=== PATIENT | female | born 1950 | race Caucasian/White ===

== ENCOUNTER 2016-10-30 20:16 | Observation (INO) | payer OTHER ==
[~2016-10-30] VITALS: Ht 157.5 cm; Wt 55.0 kg
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
--- OUTSIDE RECORDS SUMMARY | 2016-10-30 20:26 | XMS REPORT ---
Author Author [facility]. Organization [facility] Address [address] [place] [address] Phone [phone] Summary purpose CCDA Sent to PRE Chief Complaint and Reason for Visit No authorized Reason for Visit (Admitting Diagnosis) is available for this visit. Problem list No authorized problems tracked for continuity of care are available for this visit. Encounters No authorized problems tracked for encounter diagnoses are available for this visit. Medications Discharge Medications Status Medication Directions Current Synthroid 150 mcg tablet 150 microgram oral -Daily Allergies, adverse reactions, alerts Allergen Category Ingredient Status Reaction Severity Onset morphine Drug morphine Active Nausea Adolescence Levaquin Drug Levaquin Active Levaquin Drug levofloxacin Active Immunizations No immunizations recorded for this patient visit Relevant diagnostic tests and/or laboratory data No authorized results are available for this patient visit History of procedures No procedures recorded for this patient visit. Functional status Cognitive Status Finding Observation Time Level of Consciousne Alert :53 Oriented to Person Yes [id number] Yes :53 Oriented to Time Yes :53 Eyes - RANDAL Yes :53 Vital signs Type Value Date Pulse 74 :35 O2 Saturation 98% [id number]:35 Systolic Blood Press 130mm/HG [id number]:35 Diastolic Blood Pres 89mm/HG 96-15-408364:35 Temperature (Fahr) 97.9Degrees :35 Social history Type Value Smoking Status NEVER SMOKER Treatment Plan No treatment plan text is available for this visit. Hospital discharge instructions No discharge instruction text is available for this visit.
--- NOTE | 2016-10-30 20:32 | NUR ---
PROVIDER DR HOLLINGSWORTH AT BEDSIDE.
[2016-10-30] MEDS ORDERED: NORMAL SALINE 1,000 ML IV ONE (20:37)
--- NOTE | 2016-10-30 20:37 | NUR ---
CT PT LEAVES VIA CART WITH IMAGING STAFF ACCOMPANIED BY NURSE AT THIS TIME.
--- NOTE | 2016-10-30 20:44 | NUR ---
RETURN PT RETURNS TO ROOM.
--- OUTSIDE RECORDS SUMMARY | 2016-10-30 20:54 | XMS REPORT | Continuity of Care Document ---
Author Author [facility] [employer]. Organization [facility] Address Unknown Phone Unavailable Allergies Active Description Code Type Severity Reaction Onset Reported/Identified Relationship to Patient Clinical Status Yes levofloxacin 6299 Drug Allergy N/A N/A Confirmed or Verified Yes morphine 1545 Drug Allergy N/A N/A Confirmed or Verified Yes Levaquin 32628 Drug Allergy N/A N/A 09/20/2015 Yes morphine [...] Procedures Code Description [place] [address] COMPREHEN METABOLIC PANEL CARLENE NICOLE MD 04/12/2014 27672 EMERGENCY DEPT VISIT FLORENCE RAPHAEL MD 09/20/2015 [...] Status Pt. Type Provider Facility Loc./Unit Complaint [id number] 04/12/2014 11:28:00 04/12/2014 11:28:00 DIS Outpatient COREY MCLAIN, CARLENE [facility] ALA [id number] 09/20/2015 06:48:00 ACT Emergency DONAVON MCLAIN, FLOERNCE Helms [facility] ER
[2016-10-30 21:02] LABS: BASOPHILS % (AUTO) 0.4 % (0-2); EOSINOPHILS # (AUTO) 0.2 T/MM3 (0-0.5); EOSINOPHILS % (AUTO) 1.9 % (0-4); HCT - HEMATOCRIT 42.8 % (36-46); IMMATURE GRANULOCYTE # (AUTO) 0.01 T/MM3 (0.00-0.03); IMMATURE GRANULOCYTE % (AUTO) 0.1 % (0.0-0.5); INR 1.06 (0.76-1.04); LYMPHOCYTES # (AUTO) 2.8 T/MM3 (1-4.8); LYMPHOCYTES % (AUTO) 33.1 % (23-45); MEAN CORPUSCULAR HGB 29.9 UUG (26-34); MEAN CORPUSCULAR HGB CONC(MCHC 32.7 GM/DL (31-37); MEAN CORPUSCULAR VOLUME 91.5 UM3 (80-100); MEAN PLATELET VOLUME 9.7 UM3 (9.4-12.4); MONOCYTES # (AUTO) 0.5 T/MM3 (0-0.8); MONOCYTES % (AUTO) 5.9 % (0-9.0); NEUTROPHILS % (AUTO) 58.6 % (33-66); PROTHROMBIN TIME 11.5 SEC (9.31-12.49); RED BLOOD COUNT 4.68 M/MM3 (4.00-5.20); WBC - WHITE BLOOD COUNT 8.5 T/MM3 (4.5-11.0)
[2016-10-30 21:03] LABS: PTT 30.5 SEC (24-36)
[2016-10-30 21:05] LABS: ALBUMIN 4.6 G/DL (3.5-5.0); ALBUMIN/GLOBULIN RATIO 1.7 RATIO (1.1-2.2); ALKALINE PHOSPHATASE 90 U/L (38-126); ALT (SGPT) 26 U/L (9-52); ANION GAP 15 MEQ/L (5-15); AST (SGOT) 25 U/L (14-36); BUN/CREATININE RATIO 12 RATIO (6-26); CALCIUM 9.4 MG/DL (8.4-10.2); CHLORIDE 107 MEQ/L (98-107); CO2 - CARBON DIOXIDE 21 MEQ/L (22-30); CREATININE 0.9 MG/DL (0.7-1.2); GLOMERULAR FILTRATION RATE 62; GLUCOSE 125 MG/DL (65-110); POTASSIUM 3.6 MEQ/L (3.6-5); SODIUM 143 MEQ/L (134-144); TOTAL PROTEIN 7.3 G/DL (6.3-8.2)
[2016-10-30] MEDS ORDERED: ACET-2321 PO (21:05)
[2016-10-30] MEDS ORDERED: LEVO150T4 PO (21:05)
--- NOTE | 2016-10-30 21:06 | ERPDOC ---
Departure Disposition Decision Date: Oct 30, 2016 Disposition Decision Time: 21:00 Disposition: [address] [facility] Impression Impression Impression: Primary Impression: Confusion Severity: Moderate Condition: Improved Seen By: Physician only Problems/Meds/Labs Reviewed?: Yes Medications reviewed and manag: Yes Follow up care ordered?: Yes Mental Status: Alert, Occasionally Confused Scripts Levothyroxine Sodium (Synthroid) 150 Mcg Tablet 0.5 TAB PO ACB for hypothyroid for 30 Days, #30 TAB alternate 1/2 tablet with 1 tablet every other day. BEST IF TAKEN BEFORE BREAKFAST Prov: JESUS ALBERTO VILLARREAL MD 10/31/16 Doxycycline Monohydrate (Doxycycline Monohydrate) 100 Mg Capsule 1 CAP PO BID for 10 Days, #20 CAP Prov: JESUS ALBERTO VILLARREAL MD 10/31/16 HPI - CVA/Neuro General Chief Complaint: Stroke Symptoms Stated Complaint: CONFUSION/SHAKEY Time Seen by Provider: 20:37 Source: patient, family Exam Limitations: no limitations HPI - CVA/NEURO Initial Comments 66yo woman presents to the ER tonight for confusion/dizziness. Pts sx started around 1700 today; she had not eaten all day, so she ate 3 tacos. Sx have not improved. Pt has confusion, dizziness, weakness, trouble concentrating, and is repeating herself. 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 She has not been eating well, or taking good care of herself (bathroom breaks, etc). No h/o DM, HTN, or HL; remote h/o papillary thyroid CA. Today, BP is elevated. Occurred At: home Onset/Timing: Rapid Duration: 4-6 hrs Associated Symptoms: confusion, fatigue, weakness Hx of Similar Symptoms: No Allergies: Coded Allergies: meperidine (Verified Allergy, Unknown, 10/30/16) morphine (Verified Allergy, Unknown, 10/30/16) Past History Patient Medical History (1) Papillary adenocarcinoma of thyroid Review of Systems Constitutional Constitutional: dizziness, fatigue, weakness All other Systems All Other Systems: Reviewed and Negative Physical Exam General General Nourishment: well nourished, well developed, appears stated age, adult , thin General Body Habitus: well groomed Vitals and Pain First Documented Vital Signs Date Time Temp Pulse Resp B/P Pulse Ox O2 Delivery O2 Flow Rate FiO2 10/30/16 20:19 98.4 88 19 162/77 98 Room Air Weight: Kilograms: Height (feet): Height (inches): Triage Pain Scale: RN VS reviewed by Provider: Yes Eyes (brief) Eyes Brief: found: EOMI, PERRL, not found: scleral icterus ENMT (brief) ENMT Brief: FOUND: TM clear, TM good light reflex, ear canals clear, mucosa moist, normal tonsils Neck (brief) Neck: FOUND: trachea midline, NOT FOUND: JVD, adenopathy, thyromegaly Respiratory (brief) Respiratory: FOUND: clear all craft, equal bilaterally, symmetrical, NOT FOUND : rales, wheezes Cardiovascular (brief) Cardiac: FOUND: regular rate, regular rhythm, NOT FOUND: click, gallop, murmur , pedal edema, peripheral edema, rub Capillary Refill: <2 sec Pulses: all distal extremities, equal, strong Abdomen (brief) Abdominal Brief: FOUND: bowel normo active x4, soft, NOT FOUND: distended, hepatosplenomegaly, pulsatile mass, tender Lymphatic (brief) Lymphatic Brief: NOT FOUND: adenopathy, lymphedema Musculoskeletal (brief) Musculoskeletal Brief: NOT FOUND: deformity, loss of motion, spasm, tenderness Integumentary (brief) Integumentary Brief: FOUND: pink, warm Neurologic (brief) Neurological Brief: FOUND: CN w/o gross def to obs, DTR 2/4 all extremities, gait w/o gross def to obs, motor-no gross deficits, sensory-no gross deficits, NOT FOUND: Babinski Psychiatric (brief) Psychiatric Brief: FOUND: alert, normal affect, oriented Differential Diagnoses Considering: Thrombotic CVA, Hemorrhagic CVA, Delirium, DKA, Encephalitis, Hypertensive Emergency, Hypo/hypercalcemia, Hypo/hyperglycemia, Hypo/ hypernatremia, Hypothyroid, Medication Effect, Psychogenic, TIA Progress Results/Orders Orders Procedure Category Date Status Time Oxygen Administration EDM 10/30/16 Transmitted 20:37 Iv Lock (Ed Only) EDM 10/30/16 Transmitted 20:37 Bgm (Ed) EDM 10/30/16 Transmitted 20:37 Nothing By Mouth (Ed EDM 10/30/16 Transmitted Only) 20:37 Cbc W/Auto LAB 10/30/16 Complete Diff-Reflex Manual 20:37 Cmp - Comprehensive LAB 10/30/16 Complete Metabolic 20:37 Troponin I W LAB 10/30/16 Complete Hemolysis Index 20:37 INR LAB 10/30/16 Complete 20:37 PTT LAB 10/30/16 Complete 20:37 EKG EKG 10/30/16 Taken 20:37 Ct Head W/O Contrast CT 10/30/16 Taken 20:37 Nih Stroke Scale MARIE 10/30/16 Complete 20:37 Normal Saline (Normal PHA 10/30/16 Complete Saline Iv) 20:37 Elevate Hob MARIE 10/30/16 Complete 20:37 Aspirin *Ec* (Ecotrin) PHA 10/30/16 Complete 22:00 [address] In Facility: ED ADM 10/30/16 Transmitted Lab Results Laboratory Tests Test 10/30/16 20:35 10/30/16 20:49 Glucometer 110mg/dL White Blood Count 8.5T/MM3 Red Blood Count 4.68M/MM3 Hemoglobin 14.0GM/DL Hematocrit 42.8% Mean Corpuscular Volume 91.5UM3 Mean Corpuscular Hemoglobin 29.9UUG Mean Corpuscular Hemoglobin Concent 32.7GM/DL RDW Standard Deviation 45.1FL Platelet Count 289T/MM3 Mean Platelet Volume 9.7UM3 Immature Granulocyte % (Auto) 0.1% Neutrophils (%) (Auto) 58.6% Lymphocytes (%) (Auto) 33.1% Monocytes (%) (Auto) 5.9% Eosinophils (%) (Auto) 1.9% Basophils (%) (Auto) 0.4% Absolute Immature Granulocyte (auto 0.01T/MM3 Absolute Neutrophils (auto) 5.0T/MM3 Absolute Lymphocytes (auto) 2.8T/MM3 Absolute Monocytes (auto) 0.5T/MM3 Absolute Eosinophils (auto) 0.2T/MM3 Absolute Basophils (auto) 0.0T/MM3 Prothromb Time International Ratio 1.06 Activated Partial Thromboplast Time 30.5SEC Turbidity < 20 Sodium Level 143MEQ/L Potassium Level 3.6MEQ/L Chloride Level 107MEQ/L Carbon Dioxide Level 21MEQ/L Anion Gap 15MEQ/L Blood Urea Nitrogen 11.0MG/DL Creatinine 0.9MG/DL Glomerular Filtration Rate Calc 62 BUN/Creatinine Ratio 12RATIO Glucose Level 125MG/DL Calculated Osmolality 275MOSM/KG Calcium Level 9.4MG/DL Total Bilirubin 0.60MG/DL Icterus Index < 2 Aspartate Amino Transf (AST/SGOT) 25U/L Alanine Aminotransferase (ALT/SGPT) 26U/L Alkaline Phosphatase 90U/L Troponin I 0.021ng/ml C-Reactive Protein < 5.0MG/L Total Protein 7.3G/DL Albumin 4.6G/DL Globulin 2.7G/DL Albumin/Globulin Ratio 1.7RATIO Thyroid Stimulating Hormone (TSH) 6.65MIU/L Free Thyroxine Pending Chemistry Specimen Hemolysis < 15 Medications Current ED Medications Sodium Chloride (Normal Saline IV) 1,000 ml @ 0 mls/hr Q0M ONCE IV Last administered on 10/30/16t 20:59; Start 10/30/16 at 20:37; Stop 10/30/16 at 20:39 ; Status DC Progress Progress Discussed findings and recommendations with pt. Pt agrees to admission for observation. Will contact hospitalist for admission. EKG EKG : Rate: 60-100 Rhythm: sinus [place]: normal QRS: normal Intervals: normal ST/T: normal Interpreted by: signing physician Consult/PCP Consult/PCP #1: Time Called: 20:43 Time of first response: 20:45 Type of discussion: Phone Consult/PCP Discussion Details No indications for tPA. Recommends admission, MRI/MRA, EEG, TSH (to eval for undertreated hypothyroid) Consult/PCP #2: Time Called: 20:50 Time of first response: 20:55 Type of discussion: Admit Discussion/PCP Discussion Details Will admit for obs. CT CT : CT: Head no contrast Interpretation: Normal, Reviewed Written Report CORINNA HOLLINGSWORTH DO Oct 30, 2016 21:06
--- NOTE | 2016-10-30 21:10 | NUR ---
TELE-NEURO PHYSICIAN ON SCREEN COMMUNICATING WITH PT AT THIS TIME.
--- NOTE | 2016-10-30 21:38 | NUR ---
BR PT AMBULATES TO BR USING A STAEDY GAIT AT THIS TIME, VOIDS, SAMLE IS COLLECTED FOR LAB.
[2016-10-30] MEDS ORDERED: ONDANSETRON 4mg/2ml INJECTION IV PRN (22:00)
[2016-10-30] MEDS ORDERED: ASPIRIN *EC* 81mg TABLET PO ONE (22:00)
--- NOTE | 2016-10-30 22:06 | NUR ---
PROVIDER DR HOLLINGSWORTH IN ROOM AT THIS TIME.
--- NOTE | 2016-10-30 22:12 | NUR ---
ATTMEPT TO CALL REPORT AT THIS TIME, NOVEMBER WILL RETURN CALL SOON TO RECEIVE REPORT.
--- OUTSIDE RECORDS SUMMARY | 2016-10-30 22:12 | XMS REPORT | Continuity of Care Document ---
Author Author [facility] [employer]. Organization [facility] Address Unknown Phone Unavailable Allergies Active Description Code Type Severity Reaction Onset Reported/Identified Relationship to Patient Clinical Status Yes levofloxacin 6299 Drug Allergy N/A N/A Confirmed or Verified Yes morphine 1545 Drug Allergy N/A N/A Confirmed or Verified Yes Levaquin 10231 Drug Allergy N/A N/A 09/20/2015 Yes morphine [...] Procedures Code Description [place] [address] COMPREHEN METABOLIC PANEL CARLENE NICOLE MD 04/12/2014 55291 EMERGENCY DEPT VISIT FLORENCE RAPHAEL MD 09/20/2015 [...] Status Pt. Type Provider Facility Loc./Unit Complaint [id number] 04/12/2014 11:28:00 04/12/2014 11:28:00 DIS Outpatient COREY MCLAIN, CARLENE [facility] ALA [id number] 09/20/2015 06:48:00 ACT Emergency DONAVON MCLAIN, FLORENCE Helms [facility] ER
--- NOTE | 2016-10-30 22:18 | NUR ---
REPORT GIVEN TO CARLOS AT THIS TIME.
--- NOTE | 2016-10-30 22:30 | NUR ---
ADMIT TO MEDICAL RM 153 FROM ED VIA WHEELCHAIR, PT ALERT TO PERSON AND PLACE. APPEARS FATIGUED, BUT REPORTS FEELING ANXIOUS AND UNDER A LOT OF STRESS. PT'S SON ADONIS IS AT BEDSIDE.
--- NOTE | 2016-10-30 22:30 | NUR ---
DEPART PT IS TRANSFERRED VIA WHEELCHAIR TO MEDICAL UNIT ROOM 153 AT THIS TIME.
[2016-10-30 22:31] VITALS: Ht 157.5 cm; Wt 55.0 kg
[2016-10-30] MEDS ORDERED: LORA0.5T2 PO (22:41)
--- NOTE | 2016-10-30 23:22 | HPPDOC ---
WENCESLAO NYE MD 10/30/16 2315: HPI - Adult Date DATE: 10/30/16 TIME: 23:10 General Chief Complaint: not thinking right History of Present Illness Please note that the patient was seen via telemedicine with nursing assistance on 10/30/2016. 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 She has been able to eat, but due to worries about finances for her tiffany reeves son she has been working long hours and at times has forgotten to eat. She recognizes sinus fullness but no pain, some drainage. Note patient due to finances has even moved out of her home and is living in an room with her son?? Is taking half of her normal thyroid med to save money for a month. Some parasthesias noted, but no depression or weight change. Past Medical History Past Medical History Patient's Medical History: (1) Anaplastic thyroid carcinoma (2) Hypothyroidism (3) Migraines (4) Anxiety Surgical History Patient's Surgical History: for thyroid Current Medications Home Meds Active Scripts Levothyroxine Sodium (Synthroid) 150 Mcg Tablet, 0.5 TAB PO ACB for hypothyroid for 30 Days, #30 TAB alternate 1/2 tablet with 1 tablet every other day. BEST IF TAKEN BEFORE BREAKFAST Prov:JESUS ALBERTO VILLARREAL MD 10/31/16 Doxycycline Monohydrate (Doxycycline Monohydrate) 100 Mg Capsule, 1 CAP PO BID for 10 Days, #20 CAP Prov:JESUS ALBERTO VILLARREAL MD 10/31/16 Reported Medications Lorazepam (Lorazepam) 0.5 Mg Tablet, 0.5 MG PO PRN, TAB 10/30/16 Acetaminophen (Tylenol) 325 Mg Tablet, 1-2 TAB PO QID Y for PAIN, #60 TAB 2 Refills 10/30/16 Discontinued Reported Medications Levothyroxine Sodium (Synthroid) 150 Mcg Tablet, 0.5 TAB PO ACB, TAB BEST IF TAKEN BEFORE BREAKFAST 10/30/16 Allergies: Coded Allergies: meperidine (Verified Allergy, Unknown, 10/30/16) morphine (Verified Allergy, Unknown, 10/30/16) Family History Family History: mother of breast cancer, father from TTP Social History Smoking Status: Unknown if ever smoked Substance Use Type: does not use Alcohol Intake: none Housing: apartment Household Members: children Current Occupational Status: employed Advance Directives: No DPOA for Healthcare Only Review of Systems Constitutional: REPORTS: see HPI Physical Exam General General Nourishment: well nourished, thin, apparent age, adult General Body Habitus: well groomed Vital Signs Vital Signs Date Time Temp Pulse Resp B/P Pulse Ox O2 Delivery O2 Flow Rate FiO2 10/30/16 22:30 98.4 81 19 141/63 97 Room Air Height (Feet): 5 Height (Inches): 2.00 Telemetry Rhythm: Sinus Rhythm Eyes Brief: FOUND: EOMI Respiratory Brief: FOUND: clear all craft, NOT FOUND: wheezes Cardiovascular (brief) Cardiac Brief: FOUND: regular rate, regular rhythm Abdomen (brief) Abdominal Brief: FOUND: BS normo active x4 Integumentary (brief) Integumentary Brief: FOUND: pink Neurologic (brief) Neurological Brief: FOUND: cranial 2-12 intact Neurologic RN Documented GCS Eye Opening: (4)Spontaneous Verbal: (4)Confused Motor: (6)Obeys Commands Total: Psychiatric (brief) FOUND: alert, oriented Comments slow to answer but oriented and spells world backwards fine Laboratory Laboratory Tests Test 10/30/16 20:35 10/30/16 20:49 Glucometer 110mg/dL White Blood Count 8.5T/MM3 Red Blood Count 4.68M/MM3 Hemoglobin 14.0GM/DL Hematocrit 42.8% Mean Corpuscular Volume 91.5UM3 Mean Corpuscular Hemoglobin 29.9UUG Mean Corpuscular Hemoglobin Concent 32.7GM/DL RDW Standard Deviation 45.1FL Platelet Count 289T/MM3 Mean Platelet Volume 9.7UM3 Immature Granulocyte % (Auto) 0.1% Neutrophils (%) (Auto) 58.6% Lymphocytes (%) (Auto) 33.1% Monocytes (%) (Auto) 5.9% Eosinophils (%) (Auto) 1.9% Basophils (%) (Auto) 0.4% Absolute Immature Granulocyte (auto 0.01T/MM3 Absolute Neutrophils (auto) 5.0T/MM3 Absolute Lymphocytes (auto) 2.8T/MM3 Absolute Monocytes (auto) 0.5T/MM3 Absolute Eosinophils (auto) 0.2T/MM3 Absolute Basophils (auto) 0.0T/MM3 Prothromb Time International Ratio 1.06 Activated Partial Thromboplast Time 30.5SEC Turbidity < 20 Sodium Level 143MEQ/L Potassium Level 3.6MEQ/L Chloride Level 107MEQ/L Carbon Dioxide Level 21MEQ/L Anion Gap 15MEQ/L Blood Urea Nitrogen 11.0MG/DL Creatinine 0.9MG/DL Glomerular Filtration Rate Calc 62 BUN/Creatinine Ratio 12RATIO Glucose Level 125MG/DL Calculated Osmolality 275MOSM/KG Calcium Level 9.4MG/DL Total Bilirubin 0.60MG/DL Icterus Index < 2 Aspartate Amino Transf (AST/SGOT) 25U/L Alanine Aminotransferase (ALT/SGPT) 26U/L Alkaline Phosphatase 90U/L Troponin I 0.021ng/ml Total Protein 7.3G/DL Albumin 4.6G/DL Globulin 2.7G/DL Albumin/Globulin Ratio 1.7RATIO Thyroid Stimulating Hormone (TSH) 6.65MIU/L Chemistry Specimen Hemolysis < 15 Assessment & Plan Problems: (1) Altered mental status Status: Acute Assessment & Plan: obs tele and seen by teleneurology who recc MR brain which i ordered. I also ordered ASA in ED, but likely stress/sleep deprivation/etc causal. Imaging and AM labs with lipids, CRP, orthostatics warranted. No evidence of infection or metabolic problem, but not adequate thyroid replacement a contributor. Check UA and UDS as well, (2) Anaplastic thyroid carcinoma Status: Resolved (3) Anxiety Status: Acute (4) Migraines Status: Chronic (5) Hypothyroidism Status: Chronic Assessment & Plan: increase back to baseline supp 0.15mg PO daily. Code Status Full Code Hospital Course Summary Disclaimer The hospital course summary below is not to be considered part of the above Progress Note. JESUS ALBERTO VILLARREAL MD 10/31/162028: Past Medical History Current Medications Home Meds Active Scripts Levothyroxine Sodium (Synthroid) 150 Mcg Tablet, 0.5 TAB PO ACB for hypothyroid for 30 Days, #30 TAB alternate 1/2 tablet with 1 tablet every other day. BEST IF TAKEN BEFORE BREAKFAST Prov:JESUS ALBERTO VILLARREAL MD 10/31/16 Doxycycline Monohydrate (Doxycycline Monohydrate) 100 Mg Capsule, 1 CAP PO BID for 10 Days, #20 CAP Prov:JESUS ALBERTO VILLARREAL MD 10/31/16 Reported Medications Lorazepam (Lorazepam) 0.5 Mg Tablet, 0.5 MG PO PRN, TAB 10/30/16 Acetaminophen (Tylenol) 325 Mg Tablet, 1-2 TAB PO QID Y for PAIN, #60 TAB 2 Refills 10/30/16 Discontinued Reported Medications Levothyroxine Sodium (Synthroid) 150 Mcg Tablet, 0.5 TAB PO ACB, TAB BEST IF TAKEN BEFORE BREAKFAST 10/30/16 Allergies: Coded Allergies: meperidine (Verified Allergy, Unknown, 10/30/16) morphine (Verified Allergy, Unknown, 10/30/16) Assessment & Plan Assessment Dr. Nye's note reviewed, patient seen and examined this morning and later in the day. See my subsequent notes for additions and updates. WENCESLAO NYE MD Oct 30, 2016 23:15 JESUS ALBERTO VILLARREAL MD Oct 31, 2016 20:29
[2016-10-30] MEDS: LORAZEPAM 0.5 MG TABLET PO PRN (23:45)
[2016-10-31] VITALS (8 sets, daily range): BP systolic 126–161; BP diastolic 69–89; PULSE 61–86; RESP 14–18; TEMP 96.7–98.6; O2SAT 94–98
--- NOTE | 2016-10-31 00:03 | NEUROPD ---
Telestroke Consultation Note Patient Information Last Name:Jared First Name:Alissa Location: [facility] Arrival Date/Time: Age:66 Weight:55.500 Gender:female Mode of Arrival: Wheelchair Clinical Presentation Vital Signs/Laboratory Laboratory Tests Test 10/30/16 20:35 10/30/16 20:49 Glucometer 110mg/dL White Blood Count 8.5T/MM3 Red Blood Count 4.68M/MM3 Hemoglobin 14.0GM/DL Hematocrit 42.8% Mean Corpuscular Volume 91.5UM3 Mean Corpuscular Hemoglobin 29.9UUG Mean Corpuscular Hemoglobin Concent 32.7GM/DL RDW Standard Deviation 45.1FL Platelet Count 289T/MM3 Mean Platelet Volume 9.7UM3 Immature Granulocyte % (Auto) 0.1% Neutrophils (%) (Auto) 58.6% Lymphocytes (%) (Auto) 33.1% Monocytes (%) (Auto) 5.9% Eosinophils (%) (Auto) 1.9% Basophils (%) (Auto) 0.4% Absolute Immature Granulocyte (auto 0.01T/MM3 Absolute Neutrophils (auto) 5.0T/MM3 Absolute Lymphocytes (auto) 2.8T/MM3 Absolute Monocytes (auto) 0.5T/MM3 Absolute Eosinophils (auto) 0.2T/MM3 Absolute Basophils (auto) 0.0T/MM3 Prothromb Time International Ratio 1.06 Activated Partial Thromboplast Time 30.5SEC Turbidity < 20 Sodium Level 143MEQ/L Potassium Level 3.6MEQ/L Chloride Level 107MEQ/L Carbon Dioxide Level 21MEQ/L Anion Gap 15MEQ/L Blood Urea Nitrogen 11.0MG/DL Creatinine 0.9MG/DL Glomerular Filtration Rate Calc 62 BUN/Creatinine Ratio 12RATIO Glucose Level 125MG/DL Calculated Osmolality 275MOSM/KG Calcium Level 9.4MG/DL Total Bilirubin 0.60MG/DL Icterus Index < 2 Aspartate Amino Transf (AST/SGOT) 25U/L Alanine Aminotransferase (ALT/SGPT) 26U/L Alkaline Phosphatase 90U/L Troponin I 0.021ng/ml Total Protein 7.3G/DL Albumin 4.6G/DL Globulin 2.7G/DL Albumin/Globulin Ratio 1.7RATIO Thyroid Stimulating Hormone (TSH) 6.65MIU/L Chemistry Specimen Hemolysis < 15 Vital Signs Date Time Temp Pulse Resp B/P Pulse Ox O2 Delivery O2 Flow Rate FiO2 10/30/16 22:30 98.4 81 19 141/63 97 Room Air Patient History Scheduled Levothyroxine Sodium (Synthroid) 150 Mcg Tablet, 0.5 TAB PO ACB, (Reported) BEST IF TAKEN BEFORE BREAKFAST Lorazepam (Lorazepam) 0.5 Mg Tablet, 0.5 MG PO PRN, (Reported) Scheduled PRN Acetaminophen (Tylenol) 325 Mg Tablet, 1-2 TAB PO QID PRN for PAIN, (Reported) Allergies: Coded Allergies: meperidine (Verified Allergy, Unknown, 10/30/16) morphine (Verified Allergy, Unknown, 10/30/16) Patient's Surgical History: for thyroid Family History: mother of breast cancer, father from TTP Smoking Status: Unknown if ever smoked Substance Use Type: does not use Alcohol Intake: none Housing: apartment Household Members: children Current Occupational Status: employed Advance Directives: No DPOA for Healthcare Only HPI Consult Start Time: 20:45 History Reviewed: Yes History of Present Illness 66yo F presents with acute onset confusion and difficulty thinking. Patient reports that her symptoms began at 5pm. Patient reports that she has been feeling significant stress over trying to help her daughter to finance her wedding. 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 She is feeling tired and is worried that her current symptoms are related to a recurrence of her thyroid cancer. ROS Neurological: see HPI Neuro Scores-NIHSS Level of Consciousness: 0 Level of Consciousness: 0 Level of Consciousness: 0 Best Gaze: 0 Visual: 0 Facial Palsy: 0 Motor Arm Left: 0 Motor Arm Right: 0 Motor Leg Left: 0 Motor Leg Right: 0 Limb Ataxia: 0 Sensory: 0 Best Language: 1 Dysarthria: 0 Extinction and Inattention: 0 NIH Score: 2 t-PA Imaging Reviewed: Yes Time Imaging Reviewed: 21:05 Imaging Findings No acute changes t-PA Recommended?: No Reason for not recommending symptoms are mild, NIHSS=0 Recommendation Impression: (1) Altered mental status, unspecified Recommendation 66yo F presents with acute onset confusion and memory difficulty. Neurological exam is notable for patient being a little slow to answer questions and repeating the same information (about the hours worked and about her history of thyroid cancer). Of note, patient's NIHSS=0 (I was unable to correct this above) . Given the acuity of onset, differential diagnosis includes ischemic stroke and seizures. I recommend workup include MRI brain with and without gadolinium and EEG. I also recommended patient see a psychologist to better manage her stress, as she does appear to emotionally overwhelmed, and this may also be making it difficult for the patient to think clearly. SRINI SOLIMAN MD Oct 30, 2016 23:28
[2016-10-31] MEDS: LORAZEPAM 0.5 MG TABLET PO PRN (00:36)
[2016-10-31 00:52] LABS: BLOOD, URINE TRACE-LYSED (NEGATIVE); COLOR,URINE YELLOW (YELLOW); LEUKOCYTE ESTERASE ,URINE 1+ (NEGATIVE); NITRITE,URINE NEGATIVE (NEGATIVE); UROBILINOGEN,URINE 0.2 EU/DL (NORMAL)
[2016-10-31 00:56] LABS: AMPHETAMINE SCREEN,URINE NEGATIVE; BARBITURATE SCREEN,URINE NEGATIVE; BENZODIAZEPINES SCREEN,URINE NEGATIVE; CANNABINOID SCREEN,URINE NEGATIVE; COCAINE SCREEN,URINE NEGATIVE; METHADONE SCREEN, URINE NEGATIVE; METHAMPHETAMINE SCREEN, URINE NEGATIVE; OPIATE SCREEN,URINE NEGATIVE; PHENCYCLIDINE SCREEN,URINE NEGATIVE; TRICYCLIC ANTIDEPRESSANT,URINE NEGATIVE
[2016-10-31 00:59] LABS: BACTERIA,URINE NONE SEEN (NEGATIVE); RBC,URINE NONE SEEN /HPF (0-3)
--- NOTE | 2016-10-31 06:22 | NUR ---
SUMMARY PT IS ALERT WITH ACUTE CONFUSION. PT IS UNSURE OF WHO SHE IS AT TIMES. PT REPORTS A HEADACHE RATED 3/10,PHYSICIAN NOTIFIED AND AWAITING ORDERS FOR MEDICATION. REPORTS ANXIETY, ATIVAN GIVEN ORDERED. STAND BY ASSIST. IV LOCKED.
[2016-10-31] MEDS ORDERED: LEVOTHYROXINE 150 MCG TABLET PO SCH (07:30)
[2016-10-31] MEDS ORDERED: ACETAMINOPHEN 500 MG TABLET PO ONE (09:00)
[2016-10-31] MEDS ORDERED: CEFTRIAXONE 1 G in NORMAL SALINE 100 ML IV SCH (10:17)
[2016-10-31] MEDS ORDERED: NORMAL SALINE 100 ML ONE (10:36)
[2016-10-31] MEDS ORDERED: IOHEXOL 300 MG/ML 50ml INJECTION ONE (10:36)
[2016-10-31] MEDS ORDERED: SALINE FLUSH 10ml SYRINGE ONE (10:36)
--- NOTE | 2016-10-31 14:14 | NUR ---
CM THIS WORKER MET WITH PT IN ROOM. PT LAYING IN BED AT THIS TIME. SON, ADONIS PRESENT AT BEDSIDE. INTRODUCED SELF AND ROLE FO CASE MANAGEMENT. PT LIVES AT HOME WITH SON. PT IS PLANNING ON RETURNING HOME AT TIME OF DISCHARGE. DISCUSSION REGARDING NEEDS AT HOME. THIS WORKER OFFERED SUPPORTIVE LISTENING WITH PT'S MULTIPLE STRESS FACTORS. PT HAS THE NEXT 10 DAYS OFF OF WORK AND PLANNED A VISIT WITH HER SON IN [place]. PT WAS ENCOURAGED TO SEE FOLLOW UP WITH PSYCHOLOGIST. PT IS AGREEMENT WITH THIS RECOMMENDATIONS. PT PLANNING TO DO THIS AFTER SPEAKING WITH HER PCP AND INSURANCE PROVIDER. SON, ADONIS, ALSO OFFERED FINANCIAL ASSISTANCE WITH MEDICATIONS IF NEEDED SO THAT PT WOULD BE ABLE TO TAKE HER PRESCRIBED MEDICATION AND DOSAGES. PT DENIED NEEDS AND HAS SUPPORT OF FAMILY. PT IS PLANNING TO "SLOW DOWN" HER LIFE RIGHT NOW AND FOCUS ON HERSELF. THIS WORKER PROVIDED CONTACT INFORMATION FOR PT AND FAMILY. PT WAS ENCOURAGED TO CONTACT THIS WORKER WITH ASSISTANCE IN FOLLOW UP NEEDS.
[2016-10-31] MEDS ORDERED: LEVO150T4 PO ×2 (16:30→16:32)
[2016-10-31] MEDS ORDERED: DOXY100C40 PO (16:30)
--- NOTE | 2016-10-31 17:30 | NUR ---
Discharge Patient discharged to home, accompanied by son. Ambulated to vehicle at front entrance. VSS, no evidence of weakness, confusion or dizziness. medications, lab results, and activities reviewed with patient. Denies questions.
--- NOTE | 2016-10-31 20:50 | HPPDOC ---
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 Her son reported she was slow to process and repeated answers She denies pain, headache, nausea, stool or urine change. She has been able to eat, but due to worries about finances for her daughter and son she has been working long hours and at times has forgotten to eat. She recognizes sinus fullness and pressure with purulent drainage for the past week. The patient describes significant financial concerns and has subsequently decreased normal thyroid dose in half to save money. Some parasthesias noted, but no depression or weight change. On the morning of 10/31 the patient reports that symptoms have resolved. She describes some tingling in her right hand yesterday but it has subsided and she feels that she is tracking and speaking normally. Her son was present later in the day and concurred as did coworkers who came to support the patient. Patient indicates she's been working 12 hour days and has been exhausted. She denied any focal neurological deficits yesterday including diplopia, sensory loss, motor weakness, or facial droop. 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 BEST IF TAKEN BEFORE BREAKFAST Prov:NASIMA GATES MD 10/31/16 Doxycycline Monohydrate (Doxycycline Monohydrate) 100 Mg Capsule, 1 CAP PO BID for 10 Days, #20 CAP Prov:NASIMA GATES MD 10/31/16 Reported Medications Lorazepam (Lorazepam) 0.5 Mg Tablet, 0.5 MG PO PRN, TAB 3/10/17 Acetaminophen (Tylenol) 325 Mg Tablet, 1-2 TAB PO QID Y for PAIN, #60 TAB 2 Refills 10/30/16 Discontinued Reported Medications Levothyroxine Sodium (Synthroid) 150 Mcg Tablet, 0.5 TAB PO ACB, TAB BEST IF TAKEN BEFORE BREAKFAST 10/30/16 Allergies: Coded Allergies: meperidine (Verified Allergy, Unknown, 10/30/16) morphine (Verified Allergy, Unknown, 10/30/16) Family History Family History: mother of breast cancer, father from TTP; sister had lung cancer Social History Smoking Status: Never smoker Substance Use Type: does not use Alcohol Intake: none Housing: apartment Household Members: children 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 Se Castro Review of Systems All Other Systems Comments Comprehensive review of systems positive for symptoms noted in the history of present illness, stress with occasional panic attacks, occasional tinnitus. Patient complains of right-sided headache and perinasal discomfort currently. She's had no fever with recent respiratory symptoms but expressed concern that she's had influenza exposure on the job within the past 2 weeks. Remainder of review of systems was negative. Physical Exam General Vital Signs Vital Signs Date Time Temp Pulse Resp B/P Pulse Ox O2 Delivery O2 Flow Rate FiO2 10/31/16 12:36 96.7 61 18 135/73 94 Room Air EXAM General-NAD, alert, cooperative, fluent speech HEENT-PERRL, EOMI, conjunctiva clear, sclera anicteric, oropharynx clear, facial structure symmetric, neck supple without adenopathy Lungs-respirations nonlabored, airflow good, breath sounds clear Cardiac-regular rhythm, S1-S2 Abdomen-soft, nontender Extremities-without edema Skin-without rash Neuro-cranial nerves III through XII intact, motor tone and power normal, no drift of the upper extremities, sensation intact to light touch throughout, no tremor Psych-mild generalized anxiety but interacts appropriately, no push of speech, affect normal Height (Feet): 5 Height (Inches): 2.00 Telemetry Rhythm: Sinus Rhythm Neurologic RN Documented GCS Eye Opening: (4)Spontaneous Verbal: (5)Oriented Motor: (6)Obeys Commands Total: 15 Laboratory Laboratory Tests Test 10/30/16 20:35 10/30/16 20:49 10/31/16 00:35 10/31/16 04:26 Glucometer 110mg/dL White Blood Count 8.5T/MM3 Red Blood Count 4.68M/MM3 Hemoglobin 14.0GM/DL Hematocrit 42.8% Mean Corpuscular Volume 91.5UM3 Mean Corpuscular Hemoglobin 29.9UUG Mean Corpuscular Hemoglobin Concent 32.7GM/DL RDW Standard Deviation 45.1FL Platelet Count 289T/MM3 Mean Platelet Volume 9.7UM3 Immature Granulocyte % (Auto) 0.1% Neutrophils (%) (Auto) 58.6% Lymphocytes (%) (Auto) 33.1% Monocytes (%) (Auto) 5.9% Eosinophils (%) (Auto) 1.9% Basophils (%) (Auto) 0.4% Absolute Immature Granulocyte (auto 0.01T/MM3 Absolute Neutrophils (auto) 5.0T/MM3 Absolute Lymphocytes (auto) 2.8T/MM3 Absolute Monocytes (auto) 0.5T/MM3 Absolute Eosinophils (auto) 0.2T/MM3 Absolute Basophils (auto) 0.0T/MM3 Prothromb Time International Ratio 1.06 Activated Partial Thromboplast Time 30.5SEC Turbidity < 20 Sodium Level 143MEQ/L Potassium Level 3.6MEQ/L Chloride Level 107MEQ/L Carbon Dioxide Level 21MEQ/L Anion Gap 15MEQ/L Blood Urea Nitrogen 11.0MG/DL Creatinine 0.9MG/DL Glomerular Filtration Rate Calc 62 BUN/Creatinine Ratio 12RATIO Glucose Level 125MG/DL Calculated Osmolality 275MOSM/KG Calcium Level 9.4MG/DL Total Bilirubin 0.60MG/DL Icterus Index < 2 Aspartate Amino Transf (AST/SGOT) 25U/L Alanine Aminotransferase (ALT/SGPT) 26U/L Alkaline Phosphatase 90U/L Troponin I 0.021ng/ml C-Reactive Protein < 5.0MG/L Total Protein 7.3G/DL Albumin 4.6G/DL Globulin 2.7G/DL Albumin/Globulin Ratio 1.7RATIO Thyroid Stimulating Hormone (TSH) 6.65MIU/L Chemistry Specimen Hemolysis < 15 Urine Collection Type Voided-not cc-midstr Urine Color Yellow Urine Turbidity Clear Urine pH 6.5 Urine Specific [place] <=1.005 Urine Protein Negative Urine Glucose (UA) Negative Urine Ketones Negative Urine Blood Trace-lysed Urine Nitrite Negative Urine Bilirubin Negative Urine Urobilinogen 0.2EU/DL Urine Leukocyte Esterase 1+ Urine RBC None seen/HPF Urine WBC 1-3/HPF Urine Bacteria None seen Urine Culture Indicated Cult not indicated Urine Opiates Screen NegativeNG/ML Urine Oxycodone Screen NegativeNG/ML Urine Methadone Screen NegativeNG/ML Urine Propoxyphene Screen NegativeNG/ML Urine Barbiturates Screen NegativeNG/ML Urine Tricyclic Antidepressants NegativeNG/ML Urine Phencyclidine Screen NegativeNG/ML Urine Amphetamines Screen NegativeNG/ML Urine Methamphetamines Screen NegativeNG/ML Urine Benzodiazepines Screen NegativeNG/ML Urine Cocaine Screen NegativeNG/ML Urine Cannabinoids Screen NegativeNG/ML Test 10/31/16 07:07 10/31/16 15:21 Lab Scanned Report REFERENCE [id number] Adenovirus (PCR) Negative Bordetella parapertussis DNA (PCR) Negative Chlamydia pneumoniae DNA (PCR) Negative Coronavirus Type OC43 (PCR) Negative Coronavirus Type HKU1 (PCR) Negative Coronavirus Type 229E (PCR) Negative Coronavirus Type NL63 (PCR) Negative Human Metapneumovirus (PCR) Negative Influenza Virus Type A (PCR) Negative Influenza Virus Type B (PCR) Negative Mycoplasma pneumoniae (PCR) Negative Parainfluenza Type 1 (PCR) Negative Parainfluenza Type 2 (PCR) Negative Parainfluenza Type 3 (PCR) Negative Parainfluenza Type 4 (PCR) Negative Respiratory Syncytial Virus (PCR) Negative Enterovirus/Rhinovirus (PCR) Negative Radiology CT of the head reviewed by myself demonstrating no acute intracranial pathology however sphenoid sinusitis described by radiology. Assessment & Plan Problems: (1) Altered mental status Status: Resolved Assessment & Plan: obs tele and seen by teleneurology who recc MR brain which i ordered. I also ordered ASA in ED, but likely stress/sleep deprivation/etc causal. Imaging and AM labs with lipids, CRP, orthostatics warranted. No evidence of infection or metabolic problem, but not adequate thyroid replacement a contributor. Check UA and UDS as well, (2) Anaplastic thyroid carcinoma Status: Resolved Assessment & Plan: Diagnosed 1999 (3) Anxiety Status: Acute (4) Migraines Status: Chronic (5) Hypothyroidism Status: Chronic Assessment & Plan: increase back to baseline supp 0.15mg PO daily. (6) Sinusitis Status: Acute Qualifiers: Sinusitis location: sphenoidal (7) Fatigue Status: Acute Assessment No focal neurological deficits present currently or described yesterday. TIA exceedingly unlikely. MRI initially scheduled however the patient is intolerant of closed MRI units and I opted to switch to follow-up imaging by CT scanning with contrast. I reviewed the CT with later in the day and it reveals no acute pathology or evidence of metastatic disease. Increased stress and concern about financial obligations with decreased sleep likely account for patient's presentation. We discussed need to take some time off and rest. The patient will follow up with her primary care physician to reassess need for outpatient counseling for stress management and will look into meditation and other relaxation techniques. She is scheduled for 2 weeks off work starting Wednesday and is advised not to return in the intervening time. Initiation of low-dose aspirin was advised as a precaution. Respiratory viral panel was obtained and was negative for respiratory pathogens or influenza. Patient was treated with a single dose of Rocephin for sinusitis followed by initiation of doxycycline. TSH was modestly elevated at 6.65. Free T4 is pending however given history of an aggressive thyroid malignancy and need for suppressive thyroid treatment thyroid dose was increased to 150 g every other day alternating with 75 g. Patient is aware that she'll need to have TSH reassessed in 6-8 weeks to determine if dose needs to be modified further. Patient was felt stable for discharge late in the day went CT with contrast and respiratory viral panel were completed. She is asked to follow-up with Dr. Castro prior to returning to work. Medications noted above reflect discharge medications. Discharged home- discharge plans reviewed with the patient and her son. Plan/Intensity of Service CTs reviewed by myself, laboratory data reviewed, supplemental history provided by the patient's son. Discussed with nursing. Code Status Full Code Hospital Course Summary Disclaimer The hospital course summary below is not to be considered part of the above Progress Note. NASIMA GATES MD Oct 31, 2016 20:35
--- NOTE | 2016-10-31 20:52 | DSPDOC ---
Discharge Summary Date 10/31/16 Patient hospitalized with fatigue and reported difficulty thinking. Neurological workup was nonrevealing including negative CT of the head with contrast. There was evidence of sphenoid sinusitis for which treatment with doxycycline was initiated. TSH was slightly elevated and levothyroxine dose was increased. Please refer to H&P dictated earlier today for details of hospital course, discharge medications, and discharge recommendations. JESUS ALBERTO VILLARREAL MD Oct 31, 2016 20:51
--- NOTE | 2016-11-01 10:42 | DI ---
Indication: ITS.REASON: AMS PROCEDURE: CT HEAD W/O CONTRAST: Encounter: Initial Comparison: None Technique: Axial CT images through the head were performed without contrast. Iterative Reconstruction dose reducing technique was utilized. FINDINGS: The ventricles are of normal size, shape, and contour for the patient's age. There are scattered areas of low attenuation in the white matter which most likely represent changes from chronic microvascular ischemia. The brainstem, cerebellum, and cerebral hemispheres otherwise have a normal morphology and CT attenuation. There is no evidence of midline displacement. No hemorrhage, signs of acute territorial stroke, mass effect, mass lesions, or edema is evident. The visualized portions of the skull base, midface, and calvarium demonstrate no abnormality. Mild sinus disease. The tympanic and mastoid cavities appear normal. IMPRESSION: No acute intracranial abnormality or hemorrhage. There is a preliminary report by [facility]. .
--- NOTE | 2016-11-01 11:02 | DI ---
Indication: ITS.REASON: AMS-transient, hx anaplastic thyroid Ca PROCEDURE: CT HEAD W/WO CONTRAST: Comparison: October 30, 2016 Technique: Axial CT images through the head were performed without and with IV contrast. Iterative Reconstruction dose reducing technique was utilized. Contrast: Omnipaque 300 50mL FINDINGS: The ventricles are of normal size, shape, and contour for the patient's age. Minimal probable physiologic basal ganglia calcifications. The brainstem, cerebellum, and cerebral hemispheres have a normal morphology and CT attenuation. No hemorrhage, mass effect, mass lesions, or edema is evident. No areas of abnormal enhancement are seen. The visualized portions of the skull base, and calvarium demonstrate no abnormality. Mild sinus disease. IMPRESSION: No intracranial metastatic disease. Unremarkable head CT for the patient's age, both before and after contrast. There is a preliminary report by [facility]. .
[2016-11-03 01:12] LABS: LDL CHOLESTEROL,CALCULATED 96.6 (66-159); RISK FACTOR 3.1 RATIO (0-4.0); VLDL CHOLESTEROL 11.4 MG/DL (0-28)
== END 2016-10-31 17:30 | disposition home or self-care (01) ==
LOC: ED 20:16 → EDHOLD 21:53 → MED 22:30
PROVIDERS: ADMIT Hospitalist; ATTEND Internal Medicine
DX: R53.83 Other fatigue (principal); R41.0 Disorientation, unspecified; J32.3 Chronic sphenoidal sinusitis; E89.0 Postprocedural hypothyroidism; T38.1X6A Underdosing of thyroid hormones and substitutes, initial encounter; Z91.120 Patient's intentional underdosing of medication regimen due to financial hardship; Y92.098 Other place in other non-institutional residence as the place of occurrence of the external cause; F41.9 Anxiety disorder, unspecified; G43.909 Migraine, unspecified, not intractable, without status migrainosus; K90.41 Non-celiac gluten sensitivity; Z85.850 Personal history of malignant neoplasm of thyroid; Z92.3 Personal history of irradiation
CPT/HCPCS: 36415; 70450; 70470; 80053; 80061; 80306; 81001; 82948; 84439; 84443; 84484; 85025; 85610; 85730; 86140; 87486; 87581; 87633; 87798; 93005; 96361; 96365; 99218; 99284; J0696; J7030; J7050; Q9967